=== PATIENT | female | born 2000 | race African-American/Black ===

== ENCOUNTER 2024-02-03 13:02 | Emergency (ER) | payer OTHER ==
[~2024-02-03] VITALS: Ht 154.9 cm; Wt 51.0 kg
[2024-02-03 13:04] VITALS: O2SAT 100
[2024-02-03] MEDS: SODIUM CHLORIDE 0.9% 1,000 ML IV ONE ×2 (13:15→14:22)
[2024-02-03 13:52] LABS: HEMATOCRIT. 35.1 % (36.0-48.0); HEMOGLOBIN. 11.4 g/dL (12.0-16.0); MEAN CORPUSCULAR HEMOGLOBIN 26.8 pg (28.0-32.0); MEAN CORPUSCULAR HGB CONC 32.4 g/dL (31.0-37.0); MEAN CORPUSCULAR VOLUME 82.6 fL (81.0-99.0); MEAN PLATELET VOLUME 7.6 fl (7.4-10.4); PLATELET 382 x1000/uL (130-400); RED BLOOD CELL COUNT 4.25 mill/uL (4.2-5.4); RED CELL DISTRIBUTION WIDTH 18.4 % (11.6-14.6); WHITE BLOOD COUNT 9.2 x1000/uL (4.5-11.0)
[2024-02-03 14:02] LABS: CARBON DIOXIDE 22 mEq/L (21-32); CHLORIDE 110 mEq/L (98-107); SODIUM 141 mEq/L (136-145)
[2024-02-03 14:03] LABS: CALCIUM 9.3 mg/dL (8.7-10.4); D-DIMER 1.45 mg/L FEU (<0.50); INR 0.9; PARTIAL THROMBOPLASTIN TIME < 21.0 sec (23.4-31.0); PROTHROMBIN TIME 9.7 sec (9.6-11.0)
[2024-02-03 14:07] LABS: CREATININE 1.4 mg/dL (0.6-1.0)
[2024-02-03 14:08] LABS: GLUCOSE 126 mg/dL (70-105); UREA NITROGEN BLOOD 22 mg/dL (9-23)
[2024-02-03 14:09] LABS: ALANINE AMINOTRANSFERASE 8 IU/L (10-49); ALBUMIN 4.1 g/dL (3.2-4.8); ASPARTATE AMINOTRANSFERASE 17 IU/L (<34)
[2024-02-03 14:10] LABS: BILIRUBIN TOTAL 0.5 mg/dL (0.1-1.0); PROTEIN TOTAL 6.3 g/dL (6.0-8.3)
[2024-02-03 14:12] LABS: BILIRUBIN DIRECT < 0.1 mg/dL (<=3.0); DIFFERENTIAL COMMENT 1; THYROID STIMULATING HORMONE 1.23 uIU/mL (0.55-4.78); TROPONIN I HIGH SENSITIVITY < 4 ng/L (3.0-34)
[2024-02-03 14:13] LABS: ETHANOL BLOOD < 10 mg/dL (<10)
[2024-02-03 14:35] LABS: HCG SCREEN NEGATIVE
[2024-02-03 14:56] LABS: CLARITY URINE CLOUDY (CLEAR); COLOR URINE YELLOW (YELLOW); GLUCOSE URINE NEGATIVE (NEGATIVE); KETONES URINE NEGATIVE (NEGATIVE); LEUKOCYTE ESTERASE URINE NEGATIVE (NEGATIVE); NITRITE URINE NEGATIVE (NEGATIVE); OCCULT BLOOD URINE 2+ (NEGATIVE); PROTEIN URINE 3+ (NEGATIVE); SPECIFIC GRAVITY URINE 1.014 (1.005-1.030); UROBILINOGEN URINE 0.2 E.U./dL (0.2-1.0)
[2024-02-03 15:21] LABS: *AMPHETAMINES SCREEN URINE NEGATIVE (NEGATIVE); *BARBITURATES SCREEN URINE NEGATIVE (NEGATIVE); *BENZODIAZEPINES SCREEN URINE NEGATIVE (NEGATIVE); *COCAINE SCREEN URINE NEGATIVE (NEGATIVE); CANNABINOID URINE SCREEN NEGATIVE (NEGATIVE); METHADONE URINE SCREEN NEGATIVE (NEGATIVE); OPIATES URINE SCREEN NEGATIVE (NEGATIVE); PHENCYCLIDINE URINE SCREEN NEGATIVE (NEGATIVE)
[2024-02-03 15:22] LABS: ECSTASY MDMA SCREEN URINE NEGATIVE (NEGATIVE)
[2024-02-03 15:49] LABS: WBC URINE 0-2 /hpf (0-2)
[2024-02-03 15:50] LABS: BACTERIA URINE 2+; CALCIUM OXALATE CRYSTALS URINE 1+ /lpf; SQUAMOUS EPITHELIAL CELL URINE 1+ /lpf (RARE/1+)
[2024-02-03 18:24] VITALS: BP 126/80; PULSE 88; RESP 12; TEMP 36.94740; O2SAT 100
[2024-02-03 18:36] LABS: ANISOCYTOSIS 1+; PLATELET ESTIMATE NORMAL
[2024-02-03 18:37] LABS: OVALOCYTES 1+
[2024-02-03] MEDS ORDERED: IOHEXOL-350 100 ML BOTTLE ONE (22:53)
== END 2024-02-03 18:24 | disposition home or self-care (01) ==
LOC: ER 13:10
DX: R00.0 Tachycardia, unspecified (principal); I10 Essential (primary) hypertension
CPT/HCPCS: 80076; 80305; 80048; 81003; 80320; 84703; 83880; 83690; 84443; 85025; 85379; 85610; 85730; 84484; 36415; 71045; 71275; 93005; 96360; 96361; 99285; Q9967; J7030; Z7610; G0480